=== PATIENT | male | born 1950 | race African-American/Black ===

== ENCOUNTER 2023-09-04 16:09 | Emergency (ER) | payer MEDICARE, MEDICAID ==
[2023-09-04] MEDS ORDERED: methylPREDNISolone Sod Succ/PF 125 MG/2 ML VIAL ONE (16:39)
== END 2023-09-04 16:55 | disposition home or self-care (01) ==
LOC: NAV ERS 16:09
DX: M79.602 Pain in left arm (principal); I10 Essential (primary) hypertension; E78.5 Hyperlipidemia, unspecified; Z79.899 Other long term (current) drug therapy
CPT/HCPCS: 96372; 99283; J2930